=== PATIENT | female | born 1990 | race Caucasian/White ===

== ENCOUNTER → 2018-12-26 | Outpatient (CLI) | payer MEDICAID ==
[~2018-12-26] MED LIST: DICL1TAB50 PO; IBUP800T37 PO; OXYC-865 PO; SERT-173 PO
--- NOTE | 2018-12-26 12:42 | EKG ---
FACILITY: [facility] PATIENT NAME: JENNA MEJIA : [id number] MR: [id number] V: [id number] EXAM DATE: ORDERING PHYSICIAN: YUN DILLARD TECHNOLOGIST: ANGELA Veras Reason : LIGHT HEADED Blood Pressure : / mmHG Vent. Rate : 049 BPM Atrial Rate : 049 BPM P-R Int : 156 ms QRS Dur : 092 ms QT Int : 418 ms P-R-T Axes : 044 078 055 degrees QTc Int : 377 ms Marked sinus bradycardia Nonspecific T wave abnormality Abnormal ECG No previous ECGs available Confirmed by Vernon Mendez ([id number]) on 12/26/2018 6:54:45 PM Referred By: Confirmed By:Vernon Barnes
== END ==
LOC: RESP 12:30
PROVIDERS: ATTEND Physician Assistant
DX: R94.31 Abnormal electrocardiogram [ECG] [EKG] (principal)
CPT/HCPCS: 93005

== ENCOUNTER → 2019-01-06 | Outpatient (CLI) | payer MEDICAID ==
--- NOTE | 2019-01-08 22:32 | RT HOLTER TEST ---
FACILITY: [facility] PATIENT NAME: JENNA MEJIA : [id number] MR: [id number] V: [id number] EXAM DATE: ORDERING PHYSICIAN: YUN DILLARD TECHNOLOGIST: EDUARDO Hook-up date: 2019-01-06 13:58:00 Duration: 47:59:00 Test Indications: R94.31 Medications: N/A [id number] QRS complexes 7 Ventricular ectopics which represent <1 % of total QRS comp. * Supraventricular ectopics which represent % of total QRS comp. * Paced QRS complexes which represent % of total QRS comp. VENTRICULAR ECTOPY 7 Isolated 0 Bigeminal Cycles 0 Couplets 0 Runs 0 Beats in Runs * Beats LONGEST at * BPM at :: -- * Beats FASTEST at * BPM at :: -- SUPRAVENTRICULAR ECTOPY * Isolated * Couplets * Runs * Beats in Runs * Beats LONGEST at * BPM at :: -- * Beats FASTEST at * BPM at :: -- HEART RATES 41 MIN at 01:41:39 2019-01-07 74 AVG 133 MAX at 06:45:39 2019-01-08 LONGEST RR 1.528 secs at 02:49:42 2019-01-07 S-T LEVELS Channel 1 -12.800 mm MIN at 13:58:00 2019-01-06 -12.800 mm MAX at 13:58:00 2019-01-06 Channel 2 -12.800 mm MIN at 13:58:00 2019-01-06 -12.800 mm MAX at 13:58:00 2019-01-06 Channel 3 -12.800 mm MIN at 13:58:00 2019-01-06 -12.800 mm MAX at 13:58:00 2019-01-06 Sinus rhythm throughout study. Some sinus arrythmia noted. Very infrequent PVC occuring in isolation. Borderline 1st degree av block would be better elucidated on 12 lead EKG. Non specific T wave inversion in one lead occasionally. Likely negative halter study. Confirmed by Vernon Mendez ([id number]) on 01/08/2019 10:31:48 PM Referred By: Overread By: Vernon Barnes
== END ==
LOC: RESP 02:19
PROVIDERS: ATTEND Physician Assistant
DX: R94.31 Abnormal electrocardiogram [ECG] [EKG] (principal); R00.1 Bradycardia, unspecified
CPT/HCPCS: 93225; 93306